=== PATIENT | female | born 1995 | race Caucasian/White ===

== ENCOUNTER 2022-09-21 11:31 | Outpatient (CLI) ==
[~2022-09-21] VITALS: Ht 154.9 cm; Wt 78.0 kg
[2022-09-21] MEDS ORDERED: CITA10TA7 PO (11:52)
[2022-09-21] MEDS ORDERED: PRENTAB9 PO (11:52)
[2022-09-21 11:57] VITALS: BP 121/76
== END 2022-09-21 12:35 | disposition home or self-care (01) ==
LOC: M LDO 11:31
PROVIDERS: ATTEND Advanced Practice Midwife
DX: O47.1 False labor at or after 37 completed weeks of gestation (principal); Z3A.37 37 weeks gestation of pregnancy; Z88.1 Allergy status to other antibiotic agents; Z88.8 Allergy status to other drugs, medicaments and biological substances
CPT/HCPCS: 59025; G0463

== ENCOUNTER 2022-10-06 02:36 | Inpatient (IN) | payer OTHER ==
[~2022-10-06] VITALS: Ht 154.9 cm; Wt 79.8 kg
[2022-10-06] VITALS (32 sets, daily range): BP systolic 99–151; BP diastolic 54–88
[~2022-10-06 02:36] MED LIST: CITA10TA7 PO; PRENTAB9 PO
[2022-10-06] MEDS ORDERED: VITA100T59 PO (03:00)
[2022-10-06] MEDS ORDERED: HOME MED LIST COMPLETE! XX SCH (03:05)
[2022-10-06] MEDS ORDERED: LACTATED RINGER'S 1000 ML IV STA (03:39)
[2022-10-06] MEDS ORDERED: LIDOCAINE 1% MDV 20ML VIAL INFIL PRN (03:40)
[2022-10-06] MEDS ORDERED: METHYLERGONOVINE MALEATE 0.2MG/ML 1ML VIAL IM PRN (03:40)
[2022-10-06] MEDS ORDERED: CARBOPROST TROMETHAMINE 250 MCG/ML AMP IM PRN (03:40)
[2022-10-06] MEDS ORDERED: OXYTOCIN DRIP 30 UNITS in IV 1 EA IV PRN ×6 (03:40)
[2022-10-06] MEDS ORDERED: TRANEXAMIC ACID INJection 1,000 MG in NS 100 ML IV PRN (03:40)
[2022-10-06 04:20] LABS: HEMATOCRIT 35.7 % (36.0-47.0); HEMOGLOBIN 11.2 g/dl (12.0-15.5); MEAN CORPUSCULAR HEMOGLOBIN 26.9 pg (27.0-33.0); MEAN CORPUSCULAR HGB CONC 31.4 g/dl (32.0-36.5); MEAN CORPUSCULAR VOLUME 85.8 fl (80.0-96.0); PLATELET COUNT, AUTOMATED 149 10^3/uL (150-450); RED BLOOD COUNT 4.16 10^6/uL (4.00-5.40); WHITE BLOOD COUNT 11.9 10^3/uL (4.0-10.0)
[2022-10-06] MEDS ORDERED: LR 500 ML IV PRN (05:00)
[2022-10-06] MEDS ORDERED: diphenhydrAMINE 50MG/ML VIAL IV PRN (05:00)
[2022-10-06] MEDS ORDERED: ONDANSETRON 4MG 2ML VIAL IV PRN (05:00)
[2022-10-06] MEDS ORDERED: NALOXONE INJ 0.4MG/1ML VIAL IV PRN (05:00)
[2022-10-06] MEDS ORDERED: ePHEDrine SULFATE 25 MG/5 ML(5MG/ML) SYRINGE IVP PRN (05:00)
[2022-10-06] MEDS ORDERED: EPIDURAL/PCA KEYS XX PRN (05:00)
[2022-10-06] MEDS: LR 1,000 ML IV SCH ×2 (05:04→10:33)
[2022-10-06] MEDS: FENTANYL/ROPIVACAINE/NACL BAG 100 ML EPIDURAL SCH ×2 (05:05→14:20)
[2022-10-06 07:45] LABS: URIC ACID 4.5 MG/DL (3.1-7.8)
[2022-10-06 07:47] LABS: LDH LACTATE DEHYDROGENASE 169 U/L (120-246)
[2022-10-06 07:48] LABS: ALT/SGPT 16 U/L (7.0-40); AST/SGOT 17 U/L (<34); BILIRUBIN,TOTAL 0.3 MG/DL (0.3-1.2); CREATININE FOR GFR 0.58 MG/DL (0.55-1.30); GLOMERULAR FILTRATION RATE > 60.0 (>60)
[2022-10-06] MEDS: OXYTOCIN DRIP 30 UNITS in IV 1 EA IV SCH ×2 (08:53→14:21)
[2022-10-06] MEDS ORDERED: CitaloPRAM (CeleXA) 10 MG TABLET PO SCH ×2 (09:00→21:00)
[2022-10-06] MEDS: PRENATAL VITAMINS CHEWABLE TABLET PO SCH (09:00)
[2022-10-06] MEDS ORDERED: DIBUCAINE 1% OINTMENT 30GM TOP PRN (12:50)
[2022-10-06] MEDS ORDERED: METHYLERGONOVINE MALEATE 0.2 MG TAB PO PRN (12:50)
[2022-10-06] MEDS ORDERED: DOCUSATE SODIUM 100MG CAPSULE PO PRN (12:50)
[2022-10-06] MEDS: IBUPROFEN 800 MG TAB PO PRN (19:52)
[2022-10-07] MEDS: ACETAMINOPHEN TAB 650MG DOSE (2X325MG) PO PRN ×3 (02:26→17:25)
[2022-10-07] MEDS: IBUPROFEN 800 MG TAB PO PRN ×2 (05:09→15:10)
[2022-10-07 06:00] VITALS: BP 110/58
[2022-10-07] MEDS: PRENATAL VITAMINS CHEWABLE TABLET PO SCH (09:21)
[2022-10-08] MEDS ORDERED: MEASLES,MUMPS,RUBELLA VACCINE INJ (MMR-II) SC.IMMUN ONE (09:00)
== END 2022-10-07 18:27 | disposition home or self-care (01) | DRG 807 ==
LOC: M LDO 02:36 → M LDI 04:19 → M OBS 18:03
PROVIDERS: ADMIT Obstetrics & Gynecology; ATTEND Registered Nurse
PROC: 10E0XZZ Delivery of Products of Conception, External Approach (ICD-10-PCS; principal; 2022-10-06)
DX: O69.1XX0 Labor and delivery complicated by cord around neck, with compression, not applicable or unspecified (principal); Z37.0 Single live birth; F41.9 Anxiety disorder, unspecified; F32.A Depression, unspecified; F42.9 Obsessive-compulsive disorder, unspecified; Z88.1 Allergy status to other antibiotic agents; Z88.8 Allergy status to other drugs, medicaments and biological substances; Z79.899 Other long term (current) drug therapy; Z86.16 Personal history of COVID-19; O99.344 Other mental disorders complicating childbirth